=== PATIENT | female | born 1960 | race Caucasian/White ===

== ENCOUNTER → 2017-04-02 | Outpatient (CLI) | payer BC ==
--- NOTE | 2017-04-04 09:08 | Diagnostic Imaging Report ---
EXAMINATION: Bilateral screening mammogram 2D views with tomosynthesis. The current study was also evaluated with a Computer Aided Detection (CAD) system. INDICATION: Screening. PERSONAL HISTORY: No current complaints stated on the questionnaire. COMPARISON: 07/27/2015. FINDINGS: The breasts are composed of heterogeneously dense parenchyma which may decrease mammographic sensitivity. There are asymmetries with questionable architectural distortion located at mid depth of the left breast seen in the CC projection that appears to persist on the tomographic views. There is no correlating abnormality on the MLO view. These are located at mid depth in the lateral and central aspect of the left CC projection. The right breast demonstrates no change from the prior exams. IMPRESSION: Multiple asymmetries with question of architectural distortion in the central and lateral aspect of the left CC projection seen. Focal compression view evaluation and ultrasound are recommended. ACR BI-RADS Category 0: Incomplete. (Needs additional imaging evaluation). Result letter will be mailed to the patient. Note: At least 10% of breast cancer is not imaged by mammography. Dictated by: Dictated on workstation # [id number]
== END ==
LOC: RAD 11:06
PROVIDERS: ATTEND Nurse Practitioner
DX: Z12.31 Encounter for screening mammogram for malignant neoplasm of breast (principal)
CPT/HCPCS: 77067

== ENCOUNTER → 2021-09-07 | Outpatient (CLI) | payer SELFPAY ==
--- NOTE | 2021-09-08 09:21 | Diagnostic Imaging Report ---
Digital mammogram, bilateral screening This study was compared to the prior exams of 04/02/2017. At this time, there are no current complaints. The current study was also evaluated with a Computer Aided Detection (CAD) system. FINDINGS: The fibroglandular tissue in both breasts is heterogeneously dense. This does limit the sensitivity of this exam. Overall, there does not appear to have been any significant change when compared to the prior study. No primary or secondary sign of malignancy is noted. IMPRESSION: 1. There is no radiographic evidence for malignancy. 2. The patient should have her annual bilateral screening mammogram on schedule in August 2022. ACR category 1 ACR BI-RADS Category 1: Negative. Result letter will be mailed to the patient. Note: At least 10% of breast cancer is not imaged by mammography. Dictated by: Dictated on workstation # [id number]
== END ==
LOC: RAD 15:45
PROVIDERS: ATTEND Nurse Practitioner
DX: Z12.31 Encounter for screening mammogram for malignant neoplasm of breast (principal)
CPT/HCPCS: 77063; 77067

== ENCOUNTER 2023-06-30 23:06 | Inpatient (IN) | payer SELFPAY ==
[~2023-06-30] VITALS: Ht 160 cm; Wt 60.8 kg
--- NOTE | 2023-06-30 23:32 | ED Chest Pain ---
General Stated Complaint: HURTS TO BREATH Source: patient Exam Limitations: no limitations History of Present Illness Date Seen by Provider: Jun 30, 2023 Time Seen by Provider: 23:16 Initial Comments 63-year-old female presents emergency department today for tightness in her chest. The tightness started yesterday and has been persistent since that time. She did have a mild URI type illness up until a few days ago with a significant cough. She was seen in the walk-in clinic at the outset of her symptoms and diagnosed with "walking pneumonia" and started on antibiotics that she has finished at this time. She denies any fevers or chills. Pain is a tightness in her mid chest with radiation to her left arm and neck. Her cough has seemingly subsided at this time. The pain was significant right before she got here but states its nearly subsided at the time of evaluation. No cardiac history. She does have a mother that she visited recently that has verified COVID-19. All other systems reviewed and negative except documented per HPI. Voice recognition software was used to help create this chart Allergies and Home Medications Allergies Coded Allergies: No Known Drug Allergies (Unverified , 06/30/23) Patient Home Medication List Home Medication List Reviewed: Yes Review of Systems Review of Systems Constitutional: see HPI Past Rqhcsev-Lrasub-Aleyfd Hx Patient Social History Tobacco Use?: No Use of E-Cig and/or Vaping dev: No Substance use?: No Alcohol Use?: No Physical Exam Vital Signs Vital Signs - First Documented 06/30/23 23:17 Temp 36.1 Pulse 76 Resp 18 B/P (MAP) 125/75 (92) Pulse Ox 96 O2 Delivery Room Air Capillary Refill : Height, Weight, BMI Height: '" Weight: lbs. oz. kg; BMI Method: General Appearance: No Apparent Distress, WD/WN HEENT: Normal ENT Inspection, Pharynx Normal Neck: Non Tender, Supple Respiratory: Chest Non Tender, Lungs Clear, Normal Breath Sounds, No Accessory Muscle Use, No Respiratory Distress Cardiovascular: Regular Rate, Rhythm, No Edema, No Murmur, Normal Peripheral Pulses Gastrointestinal: Normal Bowel Sounds, No Organomegaly, Non Tender, Soft Extremity: Normal Capillary Refill, Normal Inspection, Normal Range of Motion, Non Tender, No Calf Tenderness, No Pedal Edema Neurologic/Psychiatric: Alert, Oriented x3, Normal Mood/Affect Skin: Normal Color, Warm/Dry Critical Care Note Critical Care Total Time (minutes) 60 Progress/Results/Core Measures Results/Orders Lab Results Laboratory Tests Test 06/30/23 23:35 07/01/23 00:20 Range/Units White Blood Count 10.5 4.3-11.0 10^3/uL Red Blood Count 4.50 3.80-5.11 10^6/uL Hemoglobin 13.3 11.5-16.0 g/dL Hematocrit 40 35-52 % Mean Corpuscular Volume 89 80-99 fL Mean Corpuscular Hemoglobin 30 25-34 pg Mean Corpuscular Hemoglobin Concent 33 32-36 g/dL Red Cell Distribution Width 12.7 10.0-14.5 % Platelet Count 299 130-400 10^3/uL Mean Platelet Volume 9.0 9.0-12.2 fL Immature Granulocyte % (Auto) 1 % Neutrophils (%) (Auto) 78 H 42-75 % Lymphocytes (%) (Auto) 15 12-44 % Monocytes (%) (Auto) 6 0-12 % Eosinophils (%) (Auto) 0 0-10 % Basophils (%) (Auto) 0 0-10 % Neutrophils # (Auto) 8.3 H 1.8-7.8 10^3/uL Lymphocytes # (Auto) 1.5 1.0-4.0 10^3/uL Monocytes # (Auto) 0.6 0.0-1.0 10^3/uL Eosinophils # (Auto) 0.0 0.0-0.3 10^3/uL Basophils # (Auto) 0.0 0.0-0.1 10^3/uL Immature Granulocyte # (Auto) 0.1 0.0-0.1 10^3/uL Sodium Level 141 135-145 MMOL/L Potassium Level 3.7 3.6-5.0 MMOL/L Chloride Level 107 98-107 MMOL/L Carbon Dioxide Level 21 21-32 MMOL/L Anion Gap 13 5-14 MMOL/L Blood Urea Nitrogen 10 7-18 MG/DL Creatinine 0.73 0.60-1.30 MG/DL Estimat Glomerular Filtration Rate 92 BUN/Creatinine Ratio 14 Glucose Level 143 H 70-105 MG/DL Calcium Level 9.4 8.5-10.1 MG/DL Corrected Calcium 9.3 8.5-10.1 MG/DL Magnesium Level 2.2 1.6-2.4 MG/DL Total Bilirubin 0.3 0.1-1.0 MG/DL Aspartate Amino Transf (AST/SGOT) 22 5-34 U/L Alanine Aminotransferase (ALT/SGPT) 15 0-55 U/L Alkaline Phosphatase 72 40-136 U/L Troponin I 1.782 *H <0.028 NG/ML Total Protein 6.8 6.4-8.2 GM/DL Albumin 4.1 3.2-4.5 GM/DL SARS-CoV-2 RNA (RT-PCR) Detected H Not Detecte My Orders Orders - JESÚS MONROE DO Cbc And Automated Diff (06/30/23 23:) Magnesium (06/30/23:) Chest 1 View, Ap/Pa Only (06/30/23:) Ekg Tracing (06/30/23:) Comprehensive Metabolic Panel (06/30/23:) Ed Iv/Invasive Line Start (06/30/23:) Troponin I Kristy (06/30/23 23:) Ketorolac Injection (Ketorolac Injection (07/01/23 00:15) Aspirin Chewable Tablet (Aspirin Chewabl (07/01/23 00:15) Aspirin Chewable Tablet (Aspirin Chewabl (07/01/23 00:13) Covid 19 Inhouse Test (07/01/23 00:19) Ed Admission (Communication) (07/01/23 00:24) Clopidogrel Tablet (Clopidogrel Tablet) (07/01/23 00:30) Medications Given in ED Vital Signs/I&O 06/30/23 06/30/23 23:17 23:17 Temp 36.1 Pulse 76 Resp 18 B/P (MAP) 125/75 (92) Pulse Ox 96 O2 Delivery Room Air Room Air Comment Sinus rhythm with a rate of 72 bpm. Normal intervals. Normal axis. No ST or T wave abnormalities. No ectopy. No STEMI. Departure Communication (Admissions) Patient is hemodynamically stable. She had no pain at the time of my evaluation, it did increase during her emergency department stay once again. She was given some pain medication and again her pain subsided completely. She is given aspirin. Troponin comes back elevated to 1.7. Chest x-ray is negative for any acute cardiopulmonary abnormalities. Her EKG again is nonischemic and no STEMI. I spoke with Dr. Burgos who gives verbal orders and request admission to the ICU and patient to remain NPO. Spoke with Dr. Mora who accepts the patient in admission. 0020: Aubrey- admit to ICU, leave NPO 0025: Abby accepts admission. Impression Primary Impression: NSTEMI (non-ST elevated myocardial infarction) Disposition: ADMITTED INPATIENT Condition: Stable Departure-Patient Inst. Referrals: NO,LOCAL PHYSICIAN (PCP/Family) Primary Care Physician JESÚS MONROE DO Jun 30, 2023 23:32
[2023-06-30 23:43] LABS: BASOPHILS % (AUTO) 0 % (0-10); EOSINOPHILS % (AUTO) 0 % (0-10); HEMATOCRIT 40 % (35-52); HEMOGLOBIN 13.3 g/dL (11.5-16.0); LYMPHOCYTES # (AUTO) 1.5 10^3/uL (1.0-4.0); LYMPHOCYTES % (AUTO) 15 % (12-44); MEAN CORPUSCULAR HEMOGLOBIN 30 pg (25-34); MEAN CORPUSCULAR HGB CONC 33 g/dL (32-36); MEAN CORPUSCULAR VOLUME 89 fL (80-99); MONOCYTES # (AUTO) 0.6 10^3/uL (0.0-1.0); MONOCYTES % (AUTO) 6 % (0-12); NEUTROPHILS # (AUTO) 8.3 10^3/uL (1.8-7.8); NEUTROPHILS % (AUTO) 78 % (42-75); PLATELET COUNT 299 10^3/uL (130-400); WHITE BLOOD COUNT 10.5 10^3/uL (4.3-11.0)
[2023-06-30 23:54] LABS: ALBUMIN 4.1 GM/DL (3.2-4.5); POTASSIUM 3.7 MMOL/L (3.6-5.0)
[2023-06-30 23:55] LABS: CALCIUM 9.4 MG/DL (8.5-10.1)
[2023-06-30 23:56] LABS: TOTAL PROTEIN 6.8 GM/DL (6.4-8.2)
[2023-06-30 23:58] LABS: BILIRUBIN,TOTAL 0.3 MG/DL (0.1-1.0)
[2023-07-01] LABS: CREATININE SERUM 0.73 MG/DL (0.60-1.30)
[2023-07-01 00:03] LABS: MAGNESIUM 2.2 MG/DL (1.6-2.4)
[2023-07-01] MEDS ORDERED: ASPIRIN 81 MG CHEWABLE TABLET ONE ×2 (00:13→13:27)
[2023-07-01] MEDS ORDERED: ASPIRIN 81 MG CHEWABLE TABLET PO ONE (00:15)
[2023-07-01] MEDS ORDERED: KETOROLAC INJ 15 MG/ML VIAL IVP ONE (00:15)
[2023-07-01] MEDS ORDERED: CLOPIDOGREL 300 MG TABLET PO ONE ×2 (00:30→13:27)
[2023-07-01 00:59] VITALS: BP 118/70
[2023-07-01] MEDS ORDERED: NS IV 500 ML 500 ML IV PRN (01:30)
[2023-07-01] MEDS ORDERED: morphine INJ 4 MG/ML 1 ML (VIAL/SYRINGE) IV PRN (02:00)
[2023-07-01] MEDS: NS IV 1000 ML 1,000 ML IV SCH ×4 (03:14→23:09)
[2023-07-01] MEDS: ENOXAPARIN 60 MG/0.6 ML SYRINGE SC SCH ×2 (03:14→14:00)
[2023-07-01 05:26] LABS: BASOPHILS % (AUTO) 0 % (0-10); EOSINOPHILS % (AUTO) 0 % (0-10); HEMATOCRIT 38 % (35-52); HEMOGLOBIN 12.6 g/dL (11.5-16.0); LYMPHOCYTES % (AUTO) 22 % (12-44); MEAN CORPUSCULAR HEMOGLOBIN 29 pg (25-34); MEAN CORPUSCULAR HGB CONC 33 g/dL (32-36); MEAN CORPUSCULAR VOLUME 89 fL (80-99); MEAN PLATELET VOLUME 9.5 fL (9.0-12.2); MONOCYTES # (AUTO) 0.6 10^3/uL (0.0-1.0); MONOCYTES % (AUTO) 6 % (0-12); NEUTROPHILS # (AUTO) 6.4 10^3/uL (1.8-7.8); NEUTROPHILS % (AUTO) 71 % (42-75); PLATELET COUNT 263 10^3/uL (130-400)
[2023-07-01 05:56] LABS: CALCIUM 8.8 MG/DL (8.5-10.1); CREATININE SERUM 0.64 MG/DL (0.60-1.30); MAGNESIUM 2.1 MG/DL (1.6-2.4); PHOSPHORUS 2.9 MG/DL (2.3-4.7); POTASSIUM 3.8 MMOL/L (3.6-5.0)
[2023-07-01] MEDS: POTASSIUM CL 10MEQ/50ML IVPB 50 ML IV SCH ×3 (06:01→07:48)
[2023-07-01] MEDS: MAGNESIUM 1 GM/100 ML IVPB 100 ML IV SCH (06:02)
[2023-07-01] MEDS: POTASSIUM CHLORIDE 20 MEQ TABLET PO SCH (06:02)
[2023-07-01] MEDS ORDERED: FLU QUADRIvalent (6 months+) 60 mcg/0.5 ml 2023-2024 (FLUARIX) IM ONE (07:00)
--- NOTE | 2023-07-01 07:52 | Diagnostic Imaging Report ---
Indication: Chest pain. Time of Exam: 11:22 PM No prior studies are available for comparison. Heart size normal. There is minimal scarring or atelectasis left base. There are no infiltrates. There is no effusion or pneumothorax. Impression: Minimal left basilar scarring or atelectasis. The study is otherwise unremarkable. Dictated by: Dictated on workstation # [id number]
[2023-07-01] MEDS: ASPIRIN 81 MG CHEWABLE TABLET PO SCH (09:00)
[2023-07-01] MEDS: CLOPIDOGREL 75 MG TABLET PO SCH (09:00)
[2023-07-01 09:17] LABS: TRIGLYCERIDES 45 MG/DL (<150); VLDL CHOLESTEROL 9 MG/DL (5-40)
[2023-07-01 09:23] LABS: CHOLESTEROL 187 MG/DL (< 200); HDL CHOLESTEROL 52 MG/DL (40-60)
--- NOTE | 2023-07-01 11:09 | Consultation-Cardiology ---
HPI-Cardiology Cardiology Consultation: Date of Consultation 07/01/23 Time Seen by a Provider: 10:15 Date of Admission Attending Physician No,Local Physician Admitting Physician Admitting Physician: Mavis Mora MD Attending Physician: Mavis Mora MD Consulting Physician ELZA GANDHI MD, MA, FACP, FACC, [facility], [facility] Physician requesting consult: Dr Mora HPI: Chief Complaint: Reason for Card consult: Ac NSTEMI 63 yo woman with cough productive of whitish/yellowish sputum about a week ago. Went to Urgent Care. Diagnosed with "walking pneumonia." Placed on antibiotics. Cough resolved in a few days. None currently, but positive for Covid-19 at presentation to ER on 06/30/23 for eval of chest discomfort that began early that day: mid chest, moderate pressure, radiating to shoulders, not associated with other symptoms, relieved in ER with nitro and other treatments for NSTEMI, never experienced before, lasting nearly 12 hours, none currently. Denies shortness of breath. Denies palp or syncope or swelling. Review of Systems-Cardiology Review of Systems Constitutional: malaise; No weight loss, No weight gain Eyes: No vision change Ears/Nose/Throat: No ear discharge, No nasal drainage, No recent hearing loss Respiratory: As described under HPI Cardiovascular: As described under HPI Gastrointestinal: No diarrhea, No nausea, No vomiting Genitourinary: No dysuria, No hematuria, No urine frequency changes Musculoskeletal: No back pain, No joint pain Skin: No rash, No ulcerations Psychiatric/Neurological: No seizure, No focal weakness, No syncope Hematologic: No bleeding abnormalities LUJ-Oupnmu-Ilswpd Hx Patient Social History Smoking Status: Former Smoker Alcohol Use?: No Pt feels they are or have been: No Past Medical History PMH As described under Assessment. Family Medical History Family Medical History: Does not report fam h/o early CAD or SCD Allergies and Home Medications Allergies Coded Allergies: No Known Drug Allergies (Unverified , 06/30/23) Patient Home Medication List Home Medication List Reviewed: Yes Physical Exam-Cardiology Physical Exam Vital Signs/I&O 06/30/23 06/30/23 07/01/23 07/01/23 23:17 23:17 00:59 01:30 Temp 36.1 36.1 Pulse 76 70 Resp 18 16 B/P (MAP) 125/75 (92) 118/70 Pulse Ox 96 96 97 O2 Delivery Room Air Room Air Room Air Room Air 07/01/23 07/01/23 07/01/23 07/01/23 01:30 01:37 01:45 02:00 Temp 37.5 Pulse 64 65 61 60 Resp 13 14 14 B/P (MAP) 113/63 (80) 120/69 (86) 107/70 (82) Pulse Ox 98 97 99 O2 Delivery Room Air Room Air Room Air 07/01/23 07/01/23 07/01/23 07/01/23 02:15 03:00 04:00 04:00 Pulse 69 69 62 Resp 27 27 27 B/P (MAP) 123/73 (90) 115/68 (84) 119/70 (86) Pulse Ox 98 99 98 98 O2 Delivery Room Air Room Air Room Air Room Air 07/01/23 07/01/23 07/01/23 07/01/23 05:00 06:00 07:00 07:00 Pulse 66 62 72 71 Resp 27 25 27 B/P (MAP) 119/70 (86) 115/66 (82) 130/81 (88) Pulse Ox 99 100 96 O2 Delivery Room Air Room Air Room Air 07/01/23 07/01/23 07/01/23 07/01/23 07:40 08:00 08:00 09:00 Temp 36.1 Pulse 69 76 B/P (MAP) 126/87 (115) 114/62 (91) Pulse Ox 97 99 100 O2 Delivery Room Air Room Air Room Air 07/01/23 10:00 Pulse 70 B/P (MAP) 140/81 (105) Pulse Ox 97 O2 Delivery Room Air Capillary Refill : Less Than 3 Seconds Constitutional: AAO x 3, well-developed, well-nourished HEENT: EOMI, hearing is well preserved; No xanthelasmas are seen Neck: carotid pulses are 2 + bilaterally, with good upstrokes Respiratory: No accessory muscle use; chest expansion is symmetric, chest is bilaterally symmetric, other (good, bilat air entry) Cardiovascular: regular rate-rhythm, S1 and S2, systolic murmur (soft CHRISTIANO at card base) Gastrointestinal: No tender; soft; No guarding, No rebound; audible bowel sounds Extremities: No clubbing, No cyanosis, No significant edema Neurologic/Psychiatric: oriented x 3, other (moves all limbs) Skin: No rash on exposed areas, No ulcerations on exposed areas Data Review Labs Laboratory Tests 06/30/23 23:35: White Blood Count 10.5, Red Blood Count 4.50, Hemoglobin 13.3, Hematocrit 40, Mean Corpuscular Volume 89, Mean Corpuscular Hemoglobin 30, Mean Corpuscular Hemoglobin Concent 33, Red Cell Distribution Width 12.7, Platelet Count 299, Mean Platelet Volume 9.0, Immature Granulocyte % (Auto) 1, Neutrophils (%) (Auto) 78H, Lymphocytes (%) (Auto) 15, Monocytes (%) (Auto) 6, Eosinophils (%) (Auto) 0, Basophils (%) (Auto) 0, Neutrophils # (Auto) 8.3H, Lymphocytes # (Auto) 1.5, Monocytes # (Auto) 0.6, Eosinophils # (Auto) 0.0, Basophils # (Auto) 0.0, Immature Granulocyte # (Auto) 0.1, Sodium Level 141, Potassium Level 3.7, Chloride Level 107, Carbon Dioxide Level 21, Anion Gap 13, Blood Urea Nitrogen 10, Creatinine 0.73, Estimat Glomerular Filtration Rate 92, BUN/Creatinine Ratio 14, Glucose Level 143H, Calcium Level 9.4, Corrected Calcium 9.3, Magnesium Level 2.2, Total Bilirubin 0.3, Aspartate Amino Transf (AST/SGOT) 22, Alanine Aminotransferase (ALT/SGPT) 15, Alkaline Phosphatase 72, Troponin I 1.782*H, Total Protein 6.8, Albumin 4.1 07/01/23 00:20: SARS-CoV-2 RNA (RT-PCR) DetectedH 07/01/23 04:57: White Blood Count 9.0, Red Blood Count 4.29, Hemoglobin 12.6, Hematocrit 38, Mean Corpuscular Volume 89, Mean Corpuscular Hemoglobin 29, Mean Corpuscular Hemoglobin Concent 33, Red Cell Distribution Width 12.9, Platelet Count 263, Mean Platelet Volume 9.5, Immature Granulocyte % (Auto) 1, Neutrophils (%) (Auto) 71, Lymphocytes (%) (Auto) 22, Monocytes (%) (Auto) 6, Eosinophils (%) (Auto) 0, Basophils (%) (Auto) 0, Neutrophils # (Auto) 6.4, Lymphocytes # (Auto) 2.0, Monocytes # (Auto) 0.6, Eosinophils # (Auto) 0.0, Basophils # (Auto) 0.0, Immature Granulocyte # (Auto) 0.1, Sodium Level 140, Potassium Level 3.8, Chloride Level 110H, Carbon Dioxide Level 22, Anion Gap 8, Blood Urea Nitrogen 10, Creatinine 0.64, Estimat Glomerular Filtration Rate 99, BUN/Creatinine Ratio 16, Glucose Level 106H, Calcium Level 8.8, Magnesium Level 2.1, Troponin I 3.962*H, Phosphorus Level 2.9, Triglycerides Level 45, Cholesterol Level 187, LDL Cholesterol Direct 145H, VLDL Cholesterol 9, HDL Cholesterol 52 Laboratory Tests 06/30/23 23:35 07/01/23 04:57 A/P-Cardiology Assessment/Admission Diagnosis Ac NSTEMI COVID-19 Discussion and Recomendations * DAPT * BB * Statin * Cath recommended. Discussed rationale, procedure, risks, benefits, potential complications and alternatives in detail. She understands and provides informed consent * Also discussed with Dr Mora Clinical Quality Measures AMI/AHF: ASA po Prior to arrival: ELZA Jay MD FACP [facility] Jul 01, 2023 11:09
[2023-07-01] MEDS ORDERED: fentaNYL INJECTION 100 MCG/2 ML VIAL ONE (11:18)
[2023-07-01] MEDS ORDERED: LIDOCAINE 1% INJ 20 ML VIAL ONE (11:19)
[2023-07-01] MEDS ORDERED: MIDAZOLAM INJ 5 MG/5 ML VIAL ONE (11:19)
[2023-07-01] MEDS ORDERED: HEParin (CATH LAB) 2,000 ML IV ONE (11:19)
[2023-07-01] MEDS ORDERED: HEParin 1000 UNIT/ML (10ML VIAL) FOR BOLUS ONE (11:41)
[2023-07-01] MEDS ORDERED: EPTIFIBATIDE BOLUS 20 ML IV ONE (12:37)
[2023-07-01] MEDS ORDERED: NS IV 1000 ML 1,000 ML ONE (12:46)
--- NOTE | 2023-07-01 13:23 | Tele-ICU Progress Note ---
Subjective Date Seen by a Provider: Jul 01, 2023 Time Seen by a Provider: 13:22 Subjective/Events-last exam Tele-ICU Physician , consultation as per request of PCP Service provided via interactive audio and video telecommunications E-CARE system to a patient admitted to ICU bed in [facility]. Available chart/ vitals / labs / Images reviewed H&P is from ER notes Patient's information available about PMH, Shx, Fhx allergy reviewed inEMR. ROS as per chart and RN report 63 y/o F presented to ER with c/o chest paid found to have NSTEMI admitted to ICU for further mgmt. Cardiology consulted A/P NSTEMI Cont DAPT, BB, Statin Planning for cath. Cont to trend troponin Lines : periph , (Central Line Necessity Reviewed) Bentley: Nutrition: npo VTE Prophylaxis: kim 1`30 bid Stress Ulcer Prophylaxis: Plans in collaboration with bedside consultants and IM MDs. Discussed with RN to reach out if any questions or concerns A total of 10 minutes of critical care time was devoted to this patient today, required to treat and/or prevent further deterioration of critical care condition ( as above ) Sepsis Event Evaluation Height, Weight, BMI Height: '" Weight: lbs. oz. kg; 23.43 BMI Method: Exam Exam Patient acknowledged, consented, and participated in this virtual visit which was conducted using real time audio/video Vital Signs Date Time Temp Pulse Resp B/P (MAP) Pulse Ox O2 Delivery O2 Flow Rate FiO2 07/01/23 12:00 97 Room Air 07/01/23 12:00 36.6 07/01/23 11:00 73 129/76 (97) 99 Room Air 07/01/23 10:00 70 140/81 (105) 97 Room Air 07/01/23 09:00 76 114/62 (91) 100 Room Air 07/01/23 08:00 69 126/87 (115) 99 Room Air 07/01/23 08:00 36.1 07/01/23 07:40 97 Room Air 07/01/23 07:00 71 27 130/81 (88) 96 Room Air 07/01/23 07:00 72 07/01/23 06:00 62 25 115/66 (82) 100 Room Air 07/01/23 05:00 66 27 119/70 (86) 99 Room Air 07/01/23 04:00 62 27 119/70 (86) 98 Room Air 07/01/23 04:00 98 Room Air 07/01/23 03:00 69 27 115/68 (84) 99 Room Air 07/01/23 02:15 69 27 123/73 (90) 98 Room Air 07/01/23 02:00 60 14 107/70 (82) 99 Room Air 07/01/23 01:45 61 14 120/69 (86) 97 Room Air 07/01/23 01:37 65 07/01/23 01:30 37.5 64 13 113/63 (80) 98 Room Air 07/01/23 01:30 97 Room Air 07/01/23 00:59 36.1 70 16 118/70 96 Room Air 06/30/23 23:17 36.1 76 18 125/75 (92) 96 Room Air 06/30/23 23:17 Room Air I & O 07/01/23 06:59 Intake Total 0 ml Output Total 0 ml Balance 0 ml Height & Weight Height: '" Weight: lbs. oz. kg; 23.43 BMI Method: General Appearance: No Apparent Distress, WD/WN HEENT: Normal ENT Inspection, Pharynx Normal Neck: Non Tender, Supple Respiratory: Chest Non Tender, Lungs Clear, Normal Breath Sounds, No Accessory Muscle Use, No Respiratory Distress Cardiovascular: Regular Rate, Rhythm, No Edema, No Murmur, Normal Peripheral Pulses Capillary Refill: Less Than 3 Seconds Extremity: Normal Capillary Refill, Normal Inspection, Normal Range of Motion, Non Tender, No Calf Tenderness, No Pedal Edema Neurologic/Psychiatric: Alert, Oriented x3, Normal Mood/Affect Skin: Normal Color, Warm/Dry Results Lab Laboratory Tests 06/30/23 23:35 07/01/23 04:57 Assessment/Plan Assessment/Plan . NITISH LEGGETT MD Jul 01, 2023 13:23
--- NOTE | 2023-07-01 14:03 | Cardiac Cath Report ---
CARDIAC CATHETERIZATION DATE OF PROCEDURE: 07-01-23 INDICATION: Ac NSTEMI HISTORY: The patient is a 63 year old female with acute NSTEMI PROCEDURES PERFORMED: 1. Cor angio; 2. PCI to LAD; 3. LHC and LV angio; 4. Aortic arch angio PROCEDURE DESCRIPTION: After informed consent and in the fasting state, left heart catheterization was performed through the R femoral artery utilizing a 6 Divehi system by percutaneous approach. JR4 for RCA, JL4 for LAD. Then PCI to LAD performed. See below. Then 6F pigtail for LHC and LV angio. Then pigtail pulled back and aortic arch angio performed to delineate and evaluate patient's right-sided aortic arch. All catheters were exchanged over a guidewire. HEMODYNAMICS: LVEDP after cor angio and cor intervention was 33 mmHg. No significant pressure gradient on pullback across the aortic valve CORONARY ANGIOGRAPHY: Left main coronary artery: Ok Left anterior descending coronary artery: Heavily calcified, particularly in its mid portion. Long, up to 99% stenosis in the prox and mid LAD stented successfully with Skypoint 2.25 x 38 mm stent. D1 with 50-60% prox stenosis Left circumflex coronary artery: Nondominant, mild plaques Right coronary artery: Dominant, mild plaques PERCUTANEOUS CORONARY INTERVENTION: Guide: JL3.5 with SH Wire: BMW Balloon: 2.0 x 15 for distal part of the lesion; 2.5 x 30 for the remainder of the lesion Stent: Skypoint 2.25 x 38 for the entire lesion, deployed at 12 manny (2.42 mm pilar), small mid portion of the stent post-dilated with 2.5 x 6 mm noncompliant to acheive full stent expansion at that site Pre-PCI: up to 99% stenosis and DERICK 2 distal flow Post-PCI: 0% residual and DERICK 3 distal flow Dominance: RCA LV ANGIO WATKINS projection only: LVEF 50-55% w/o RWMA AORTIC ARCH ANGIO R-sided arch, neck arteries intact to the extent visualized, no aneurysm or dissection seen IMPRESSION: 1. Left main coronary artery: Ok. Left anterior descending coronary artery: Heavily calcified, particularly in its mid portion. Long, up to 99% stenosis in the prox and mid LAD stented successfully with Skypoint 2.25 x 38 mm stent. D1 with 50-60% prox stenosis. Left circumflex coronary artery: Nondominant, mild plaques. Right coronary artery: Dominant, mild plaques 2. LVEDP 33 mmHg 3. LVEF 50-55% 4. R-sided arch ELZA GANDHI MD [facility] Jul 01, 2023 14:03
[2023-07-01] MEDS ORDERED: PATIENT MAY USE OWN MEDS, ALL PO SCH (14:15)
--- NOTE | 2023-07-01 14:35 | History & Physical-Hospitalist ---
History of Present Illness HPI/Chief Complaint Ana Luisa Stock is a 63 year old female with PMH HTN who presented with chest pain. She says she started having a heaviness over her chest on . She says it was persistent and then yesterday worsened with radiation to her back and arms. She denies shortness of breath. She denies diaphoresis. She denies nausea and vomiting. She was sick about 10 days ago with "walking pneumonia". She received a course of Doxycycline and a course of steroids. She was reportedly exposed to her mother recently who was diagnosed with COVID. Source: patient Exam Limitations: no limitations Date Seen 07/01/23 Time Seen by a Provider: 10:00 Attending Physician No,Local Physician PCP Admitting Physician: Mavis Mora MD Attending Physician: Mavis Mora MD Referring Physician Date of Admission Jul 01, 2023 at 00:54 Home Medications & Allergies Home Medications Reviewed patient Home Medication Reconciliation performed by pharmacy medication reconciliations diazo technician and/or nursing. Patients Allergies have been reviewed. Allergies Allergies Coded Allergies No Known Drug Allergies (Nbwtepsvle44/9/23) Past Pdsraha-Onywqz-Masjjo Hx Patient Social History Tobacco Use?: No Smoking Status: Former Smoker Smokeless Tobacco Frequency: Never a User Use of E-Cig and/or Vaping dev: No Substance use?: No Alcohol Use?: No Pt feels they are or have been: No Current Status Advance Directives: No Advance Directive Location: Home Communicates: Verbally Primary Language: Namibian Preferred Spoken Language: Namibian Is interpretation needed?: No Sensory deficits: Vision impairment Implanted or Applied Medical D: None Family Medical History No Pertinent Family Hx Review of Systems Constitutional: no symptoms reported Respiratory: no symptoms reported Cardiovascular: chest pain Gastrointestinal: no symptoms reported Physical Exam Physical Exam Vital Signs Vital Signs - First Documented 06/30/23 23:17 Temp 36.1 Pulse 76 Resp 18 B/P (MAP) 125/75 (92) Pulse Ox 96 O2 Delivery Room Air Capillary Refill : NONE Height, Weight, BMI Height: '" Weight: lbs. oz. kg; 23.43 BMI Method: General Appearance: No Apparent Distress, WD/WN HEENT: PERRL/EOMI, Pharynx Normal Neck: Normal Inspection, Supple Respiratory: Lungs Clear, Normal Breath Sounds, No Respiratory Distress Cardiovascular: Regular Rate, Rhythm, No Edema, No Murmur Gastrointestinal: Normal Bowel Sounds, Non Tender, Soft Extremity: Normal Inspection, No Pedal Edema Neurologic/Psychiatric: Alert, Normal Mood/Affect Skin: Normal Color, Warm/Dry Results Results/Procedures Labs Laboratory Tests 06/30/23 23:35 07/01/23 04:57 Patient resulted labs reviewed. Imaging: Reviewed Imaging Report Assessment/Plan Admission Diagnosis NSTEMI Admission Status: Inpatient Order (span 2 midnights) Reason for Inpatient Admission: Cardiology evaluation Assessment and Plan NSTEMI HTN HLD Troponin significantly elevated Cardiology consulted Planning for left heart cath today ASA Plavix Lovenox Lipitor Metoprolol COVID Asymptomatic, monitor Diagnosis/Problems Diagnosis/Problems (1) NSTEMI (non-ST elevated myocardial infarction) Status: Acute (2) HTN (hypertension) Status: Chronic (3) Dyslipidemia Status: Acute (4) COVID Status: Acute Clinical Quality Measures AMI/AHF: ASA po Prior to arrival: MAVIS Patel MD Jul 01, 2023 14:35
[2023-07-01] MEDS ORDERED: ATROPINE 1 MG/10 ML EMERGENCY SYRINGE ONE (15:55)
[2023-07-01] MEDS: fentaNYL INJECTION 100 MCG/2 ML VIAL IVP PRN ×2 (17:02→18:18)
[2023-07-01] MEDS: ONDANSETRON INJECTION 4 MG/2 ML (SDV) IVP PRN ×2 (17:02→23:08)
[2023-07-02] MEDS: ENOXAPARIN 60 MG/0.6 ML SYRINGE SC SCH ×3 (02:46→13:08)
[2023-07-02] MEDS: NS IV 1000 ML 1,000 ML IV SCH ×2 (04:25→09:34)
[2023-07-02 04:53] LABS: BASOPHILS % (AUTO) 0 % (0-10); EOSINOPHILS % (AUTO) 0 % (0-10); HEMATOCRIT 34 % (35-52); HEMOGLOBIN 10.9 g/dL (11.5-16.0); LYMPHOCYTES % (AUTO) 10 % (12-44); MEAN CORPUSCULAR HEMOGLOBIN 29 pg (25-34); MEAN CORPUSCULAR HGB CONC 32 g/dL (32-36); MEAN CORPUSCULAR VOLUME 91 fL (80-99); MEAN PLATELET VOLUME 9.6 fL (9.0-12.2); MONOCYTES # (AUTO) 0.6 10^3/uL (0.0-1.0); MONOCYTES % (AUTO) 7 % (0-12); NEUTROPHILS # (AUTO) 7.5 10^3/uL (1.8-7.8); NEUTROPHILS % (AUTO) 82 % (42-75); PLATELET COUNT 248 10^3/uL (130-400); WHITE BLOOD COUNT 9.2 10^3/uL (4.3-11.0)
[2023-07-02 05:13] LABS: CREATININE SERUM 0.62 MG/DL (0.60-1.30); MAGNESIUM 1.9 MG/DL (1.6-2.4); PHOSPHORUS 2.8 MG/DL (2.3-4.7); POTASSIUM 4.1 MMOL/L (3.6-5.0)
[2023-07-02] MEDS: MAGNESIUM 1 GM/100 ML IVPB 100 ML IV SCH ×3 (06:02→07:35)
[2023-07-02] MEDS: POTASSIUM CHLORIDE 20 MEQ TABLET PO SCH (06:03)
[2023-07-02] MEDS: POTASSIUM CL 10MEQ/50ML IVPB 50 ML IV SCH (06:03)
[2023-07-02] MEDS: ONDANSETRON INJECTION 4 MG/2 ML (SDV) IVP PRN (07:41)
[2023-07-02] MEDS ORDERED: PROMETHAZINE INJ 25 MG/ML VIAL IVP PRN (08:00)
--- NOTE | 2023-07-02 08:10 | Progress Note - Cardiology ---
Cardiology SOAP Progress Note Subjective: Sitting up in bed States she feels very nauseated since last evening No c/o CP, SOB or palpitations No c/o right groin discomfort Objective: I&O/Vital Signs 07/02/23 23:59 Intake Total 240 ml Balance 240 ml Side: right Groin site without hematoma: Yes Condition: DP/PT pulses palpable Bruising: mild bruising Constitutional: AAO x 3, well-developed, well-nourished Respiratory: No accessory muscle use; chest expansion is symmetric, chest is bilaterally symmetric, other (good, bilat air entry) Cardiovascular: regular rate-rhythm, S1 and S2, systolic murmur (soft CHRISTIANO at card base) Gastrointestional: No tender; soft; No guarding, No rebound; audible bowel sounds Extremities: No clubbing, No cyanosis, No significant edema Neurologic/Psychiatric: oriented x 3, other (moves all limbs) Skin: No rash on exposed areas, No ulcerations on exposed areas Results/Procedures: Labs Microbiology 07/01/23 MRSA Screen - Final, Complete MRSA not isolated A/P: Assessment: Ac NSTEMI - CAD - Cardiac cath of 07-01-23: Left main coronary artery: Ok. Left anterior descending coronary artery: Heavily calcified, particularly in its mid portion. Long, up to 99% stenosis in the prox and mid LAD stented successfully with Skypoint 2.25 x 38 mm stent. D1 with 50-60% prox stenosis. Left circumflex coronary artery: Nondominant, mild plaques. Right coronary artery: Dominant, mild plaques 2. LVEDP 33 mmHg 3. LVEF 50-55% 4. R-sided arch COVID-19 (+) Nausea - management per medical services Plan: * S/P cardiac cath with successful coronary intervention on 07-01-23 * Continue DAPT, statin * Somewhat low BP, 90's sytolic (albeit asymptomtic) - unable to tolerate long- acting BB * Nausea - management per medical services - start PPI (first dose IV, then change to oral) * Management of COVID per medical services Clinical Quality Measures AMI/AHF: ASA po Prior to arrival: MAN Naidu Jul 02, 2023 08:10
[2023-07-02] MEDS ORDERED: ATOR40TA PO (08:13)
[2023-07-02] MEDS ORDERED: CLOP75TA28 PO (08:13)
[2023-07-02] MEDS ORDERED: ASPI81TA64 PO (08:13)
[2023-07-02] MEDS ORDERED: MTP25TSR PO (08:13)
[2023-07-02] MEDS ORDERED: SCOPOLAMINE 1.5 MG PATCH TD NR (08:30)
[2023-07-02] MEDS ORDERED: PANTOPRAZOLE INJECTION 40 MG VIAL IV NR (08:30)
[2023-07-02] MEDS ORDERED: meTOprolol TARTRATE (IR) 25 MG TABLET PO SCH (09:00)
[2023-07-02] MEDS ORDERED: PROCHLORPERAZINE INJ 10 MG/2ML VIAL IV PRN (10:00)
--- NOTE | 2023-07-02 10:03 | Progress Note - Hospitalist ---
Subjective HPI/CC On Admission Date Seen by Provider: Jul 02, 2023 Ana Luisa Stock is a 63 year old female with PMH HTN who presented with chest pain. She says she started having a heaviness over her chest on . She says it was persistent and then yesterday worsened with radiation to her back and arms. She denies shortness of breath. She denies diaphoresis. She denies nausea and vomiting. She was sick about 10 days ago with "walking pneumonia". She received a course of Doxycycline and a course of steroids. She was reportedly exposed to her mother recently who was diagnosed with COVID. Subjective/Events-last exam Pt reports doing ok except having nausea. Was unable to take her lipitor last night. Zofran not helping. Had complained of dizziness to RN but to me did not unless asked specifically about that and she thinks it's just from lying in bed. Objective Exam Vital Signs Vital Signs Date Time Temp Pulse Resp B/P (MAP) Pulse Ox O2 Delivery O2 Flow Rate FiO2 07/02/23 09:00 59 11 112/67 (82) 99 Room Air 07/02/23 07:54 36.8 Capillary Refill : Less Than 3 Seconds General Appearance: No Apparent Distress, WD/WN Respiratory: Lungs Clear Cardiovascular: Regular Rate, Rhythm, No Murmur Gastrointestinal: Normal Bowel Sounds, Soft Neurologic/Psychiatric: Alert, Oriented x3 Results/Procedures Lab Laboratory Tests 07/02/23 04:28 Patient resulted labs reviewed. Imaging: Reviewed Imaging Report Assessment/Plan Assessment and Plan Assess & Plan/Chief Complaint NSTEMI HTN HLD s/p cath yesterday- stent to LAD Cardiology consulted ASA Plavix Lovenox Lipitor Metoprolol EF 50-55% noted during cath COVID Nausea Asymptomatic, monitor Zofran prn Scopolamine patch added Compazine prn Clinical Quality Measures AMI/AHF: ASA po Prior to arrival: No SHAGGY CARY MD Jul 02, 2023 10:03
[2023-07-02] MEDS: ASPIRIN 81 MG CHEWABLE TABLET PO SCH (10:07)
[2023-07-02] MEDS: CLOPIDOGREL 75 MG TABLET PO SCH (10:08)
--- NOTE | 2023-07-02 13:06 | Tele-ICU Progress Note ---
Subjective Date Seen by a Provider: Jul 02, 2023 Time Seen by a Provider: 13:06 Subjective/Events-last exam Tele-ICU Physician , Progress Note Service provided via interactive audio and video telecommunications E-CARE sys tem to a patient admitted to ICU bed in [facility]. Patient is seen today due to persistent need of ICU care Available chart/ vitals / labs / Images reviewed Video assessment done using teleICU camera, rest of exam as per RN Discussed with RN 07/02:No major event overnight. Only complaint includes nausea. Hospital course 63 y/o F presented to ER with c/o chest pain admitted for NSTEMI s/p cath (07/01) with stent to LAD. Diagnostic tests Cardiac cath of 07-01-23: Left main coronary artery: Ok. Left anterior descending coronary artery: Heavily calcified, particularly in its mid portion. Long, up to 99% stenosis in the prox and mid LAD stented successfully with Sk ypoint 2.25 x 38 mm stent. D1 with 50-60% prox stenosis. Left circumflex coronary artery: Nondominant, mild plaques. Right coronary artery: Dominant, mild plaques A/P NSTEMI s/p Cath with stent to LAD -Cardiology following. -Rec continuing ASA, Plavix -Cont lovenox -Cont metoprolol Chronic Nausea: Notes no improvement with Zofran. Will start scopolamine patch and compazine prn Lines : periph , (Central Line Necessity Reviewed) Bentley: Nutrition: cardiac diet VTE Prophylaxis: kim 1`30 bid Stress Ulcer Prophylaxis: n/a Plans in collaboration with bedside consultants and IM MDs. Discussed with RN to reach out if any questions or concerns A total of 10 minutes of critical care time was devoted to this patient today, required to treat and/or prevent further deterioration of critical care condition (as above ) I am remotely monitoring this patient from another state. I am unable to do the bedside exam, and history/physical and pertinent information is taken from other notes in the computer and bedside staff Sepsis Event Evaluation Height, Weight, BMI Height: '" Weight: lbs. oz. kg; 23.75 BMI Method: Exam Exam Patient acknowledged, consented, and participated in this virtual visit which was conducted using real time audio/video Vital Signs Date Time Temp Pulse Resp B/P (MAP) Pulse Ox O2 Delivery O2 Flow Rate FiO2 07/02/23 12:00 55 14 102/64 (77) 99 Room Air 07/02/23 11:26 36.6 07/02/23 11:00 59 8 106/62 (77) 99 Room Air 07/02/23 10:00 62 24 114/62 (79) 99 Room Air 07/02/23 09:00 59 11 112/67 (82) 99 Room Air 07/02/23 08:00 57 12 98/51 (67) 99 Room Air 07/02/23 08:00 100 Room Air 07/02/23 07:54 36.8 07/02/23 07:00 61 17 110/59 (76) 99 Room Air 07/02/23 07:00 65 07/02/23 06:00 60 13 103/59 (74) 99 Room Air 07/02/23 05:00 57 12 99/56 (70) 98 Room Air 07/02/23 04:00 97 Room Air 07/02/23 04:00 62 13 90/44 (64) 98 Room Air 07/02/23 03:00 57 11 111/57 (86) 98 Room Air 07/02/23 02:38 67 114/67 (85) 100 Room Air 07/02/23 02:00 60 7 90/53 (68) 99 Room Air 07/02/23 01:00 62 11 92/58 (69) 98 Room Air 07/02/23 01:00 62 07/02/23 00:00 61 11 91/47 (62) 98 Room Air 07/01/23 23:59 97 Room Air 07/01/23 23:10 65 11 103/59 (77) 98 Room Air 07/01/23 22:00 60 12 100/60 (73) 97 Room Air 07/01/23 21:00 58 9 103/60 (75) 97 Room Air 07/01/23 20:00 98 Room Air 07/01/23 20:00 68 9 110/67 (83) 99 Room Air 07/01/23 19:35 36.6 07/01/23 19:00 80 07/01/23 19:00 74 30 103/89 (95) 99 Room Air 07/01/23 18:00 66 18 118/70 (82) 100 Room Air 07/01/23 17:00 64 13 90/75 (81) 98 Room Air 07/01/23 16:00 36.7 07/01/23 16:00 97 Room Air 07/01/23 16:00 79 23 109/77 (88) 98 Room Air 07/01/23 15:00 63 15 122/78 (100) 100 Room Air 07/01/23 14:05 66 133/73 (93) 99 Room Air I & O 07/02/23 06:59 Intake Total 1450 ml Output Total 700 ml Balance 750 ml Height & Weight Height: '" Weight: lbs. oz. kg; 23.75 BMI Method: General Appearance: No Apparent Distress, WD/WN HEENT: Normal ENT Inspection, Pharynx Normal Neck: Non Tender, Supple Respiratory: Lungs Clear Cardiovascular: Regular Rate, Rhythm, No Murmur Capillary Refill: Less Than 3 Seconds Extremity: Normal Capillary Refill, Normal Inspection, Normal Range of Motion, Non Tender, No Calf Tenderness, No Pedal Edema Neurologic/Psychiatric: Alert, Oriented x3 Skin: Normal Color, Warm/Dry Results Lab Laboratory Tests 06/30/23 23:35 07/01/23 04:57 07/02/23 04:28 Assessment/Plan Assessment/Plan . NITISH LEGGETT MD Jul 02, 2023 13:06
[2023-07-02] MEDS ORDERED: ENOXAPARIN 40 MG/0.4 ML SYRINGE SQ SCH ×2 (13:15→14:00)
--- NOTE | 2023-07-02 13:33 | Progress Note - Cardiology ---
Cardiology SOAP Progress Note Subjective: N/V this am, now resolved. Has been able to keep all her meds down No cp or palp or syncope or shortness of breath No groin or leg discomfort/discoloration Denies any focal weakness Insists on going home Objective: I&O/Vital Signs 07/02/23 07/02/23 07/02/23 07/02/23 02:00 02:38 03:00 04:00 Pulse 60 67 57 62 Resp 7 11 13 B/P (MAP) 90/53 (68) 114/67 (85) 111/57 (86) 90/44 (64) Pulse Ox 99 100 98 98 O2 Delivery Room Air Room Air Room Air Room Air 07/02/23 07/02/23 07/02/23 07/02/23 04:00 05:00 06:00 07:00 Pulse 57 60 65 Resp 12 13 B/P (MAP) 99/56 (70) 103/59 (74) Pulse Ox 97 98 99 O2 Delivery Room Air Room Air Room Air 07/02/23 07/02/23 07/02/23 07/02/23 07:00 07:54 08:00 08:00 Temp 36.8 Pulse 61 57 Resp 17 12 B/P (MAP) 110/59 (76) 98/51 (67) Pulse Ox 99 100 99 O2 Delivery Room Air Room Air Room Air 07/02/23 07/02/23 07/02/23 07/02/23 09:00 10:00 11:00 11:26 Temp 36.6 Pulse 59 62 59 Resp 11 24 8 B/P (MAP) 112/67 (82) 114/62 (79) 106/62 (77) Pulse Ox 99 99 99 O2 Delivery Room Air Room Air Room Air 07/02/23 07/02/23 12:00 12:00 Pulse 55 Resp 14 B/P (MAP) 102/64 (77) Pulse Ox 100 99 O2 Delivery Room Air Room Air 07/01/23 23:59 Intake Total 1100 ml Output Total 700 ml Balance 400 ml Side: right Groin site without hematoma: Yes Condition: DP/PT pulses palpable Bruising: mild bruising Constitutional: AAO x 3, well-developed, well-nourished Respiratory: No accessory muscle use; chest expansion is symmetric, chest is bilaterally symmetric, other (good, bilat air entry) Cardiovascular: regular rate-rhythm, S1 and S2, systolic murmur (soft CHRISTIANO at card base) Gastrointestional: No tender; soft; No guarding, No rebound; audible bowel sounds Extremities: No clubbing, No cyanosis, No significant edema Neurologic/Psychiatric: oriented x 3, other (moves all limbs) Skin: No rash on exposed areas, No ulcerations on exposed areas Results/Procedures: Labs Laboratory Tests 07/02/23 04:28: White Blood Count 9.2, Red Blood Count 3.71L, Hemoglobin 10.9L, Hematocrit 34L, Mean Corpuscular Volume 91, Mean Corpuscular Hemoglobin 29, Mean Corpuscular Hemoglobin Concent 32, Red Cell Distribution Width 13.1, Platelet Count 248, Mean Platelet Volume 9.6, Immature Granulocyte % (Auto) 1, Neutrophils (%) (Au to) 82H, Lymphocytes (%) (Auto) 10L, Monocytes (%) (Auto) 7, Eosinophils (%) (Auto) 0, Basophils (%) (Auto) 0, Neutrophils # (Auto) 7.5, Lymphocytes # (Auto) 1.0, Monocytes # (Auto) 0.6, Eosinophils # (Auto) 0.0, Basophils # (Auto) 0.0, Immature Granulocyte # (Auto) 0.1, Sodium Level 138, Potassium Level 4.1, Chloride Level 110H, Carbon Dioxide Level 19L, Anion Gap 9, Blood Urea Nitrogen 8, Creatinine 0.62, Estimat Glomerular Filtration Rate 100, BUN/Creatinine Ratio 13, Glucose Level 121H, Calcium Level 8.0L, Phosphorus Level 2.8, Magnesium Level 1.9 Microbiology 07/01/23 MRSA Screen - Final, Complete MRSA not isolated A/P: Assessment: Ac NSTEMI - CAD - Cardiac cath of 07-01-23: Left main coronary artery: Ok. Left anterior descending coronary artery: Heavily calcified, particularly in its mid portion. Long, up to 99% stenosis in the prox and mid LAD stented successfully with Skypoint 2.25 x 38 mm stent. D1 with 50-60% prox stenosis. Left circumflex coronary artery: Nondominant, mild plaques. Right coronary artery: Dominant, mild plaques 2. LVEDP 33 mmHg 3. LVEF 50-55% 4. R-sided arch COVID-19 (+) Nausea - management per medical services Plan: * S/P cardiac cath with successful coronary intervention on 07-01-23 * Continue DAPT, statin * Dose of bb lowered because of relatively low bp * Nausea - management per medical services - start PPI (first dose IV, then change to oral) * Management of COVID per medical services * Advised to return to ER for any symptoms (recurrence or new) Clinical Quality Measures AMI/AHF: ASA po Prior to arrival: ELZA Jay MD FACP FAC CCDS Jul 02, 2023 13:33
[2023-07-02] MEDS ORDERED: AMLO-250 PO (14:20)
[2023-07-02] MEDS ORDERED: SPIR25TA5 PO (14:20)
--- NOTE | 2023-07-02 14:27 | Discharge Summary ---
Diagnosis/Chief Complaint Date of Admission Jul 01, 2023 at 00:54 Date of Discharge Discharge Date: Jul 02, 2023 Admission Diagnosis NSTEMI Primary Care No,Local Physician Discharge Diagnosis (1) NSTEMI (non-ST elevated myocardial infarction) Status: Acute (2) HTN (hypertension) Status: Chronic (3) Dyslipidemia Status: Acute (4) COVID Status: Acute Discharge Summary Discharge Physical Exam Allergies: Coded Allergies: No Known Drug Allergies (Unverified , 06/30/23) Vitals & I&Os Vital Signs Date Time Temp Pulse Resp B/P (MAP) Pulse Ox O2 Delivery O2 Flow Rate FiO2 07/02/23 13:00 57 07/02/23 12:00 14 102/64 (77) 99 Room Air 07/02/23 11:26 36.6 General Appearance: No Apparent Distress Hospital Course Pt was admitted to the hospital due to NSTEMI. Cardiology was consulted and she underwent heart cath with LAD Labs (last 24 hrs) Laboratory Tests 07/02/23 04:28: White Blood Count 9.2, Red Blood Count 3.71L, Hemoglobin 10.9L, Hematocrit 34L, Mean Corpuscular Volume 91, Mean Corpuscular Hemoglobin 29, Mean Corpuscular Hemoglobin Concent 32, Red Cell Distribution Width 13.1, Platelet Count 248, Mean Platelet Volume 9.6, Immature Granulocyte % (Auto) 1, Neutrophils (%) (Auto) 82H, Lymphocytes (%) (Auto) 10L, Monocytes (%) (Auto) 7, Eosinophils (%) (Auto) 0, Basophils (%) (Auto) 0, Neutrophils # (Auto) 7.5, Lymphocytes # (Auto) 1.0, Monocytes # (Auto) 0.6, Eosinophils # (Auto) 0.0, Basophils # (Auto) 0.0, Immature Granulocyte # (Auto) 0.1, Sodium Level 138, Potassium Level 4.1, Chloride Level 110H, Carbon Dioxide Level 19L, Anion Gap 9, Blood Urea Nitrogen 8, Creatinine 0.62, Estimat Glomerular Filtration Rate 100, BUN/Creatinine Ratio 13, Glucose Level 121H, Calcium Level 8.0L, Phosphorus Level 2.8, Magnesium Level 1.9 Microbiology 07/01/23 MRSA Screen - Final, Complete MRSA not isolated Patient resulted labs reviewed. Imaging: Reviewed Imaging Report Discharge Home Medications: Active Scripts Active Children's Aspirin (Aspirin) 81 Mg Tab.chew 81 Mg PO DAILY Metoprolol Succinate 25 Mg Tab.er.24h 25 Mg PO DAILY Lipitor (Atorvastatin Calcium) 40 Mg Tablet 40 Mg PO HS Clopidogrel (Clopidogrel Bisulfate) 75 Mg Tablet 75 Mg PO DAILY Instructions to patient/family Please see electronic discharge instructions given to patient. Clinical Quality Measures AMI/AHF: ASA po Prior to arrival: SHAGGY Easley MD Jul 02, 2023 14:27
--- NOTE | 2023-07-02 14:33 | Discharge Inst-Simple/Standard ---
Discharge Inst-Standard Patient Instructions/Follow Up Plan of Care/Instructions/FU: Please continue to take your medications as written. Please follow up with your primary care doctor to follow up this hospital stay. Activity as Tolerated: Yes Discharge Diet: Cardiac Diet Return to The Hospital For: Chest pain, shortness of breath, fever, weakness, if you feel you are getting worse. SHAGGY CARY MD Jul 02, 2023 14:33
[2023-07-03] MEDS ORDERED: PANTOPRAZOLE 40 MG TABLET PO SCH (09:00)
[2023-07-05] MEDS ORDERED: SCOPOLAMINE PATCH REMOVAL TP ONE (08:30)
== END 2023-07-02 15:00 | disposition home or self-care (01) | DRG 321 ==
LOC: EDUNIT# 23:06 → ER 23:09 → ICU 07-01 00:54
PROVIDERS: ADMIT Internal Medicine; ATTEND Internal Medicine
PROC: 027034Z Dilation of Coronary Artery, One Artery with Drug-eluting Intraluminal Device, Percutaneous Approach (ICD-10-PCS; principal; 2023-07-01)
PROC: 4A023N7 Measurement of Cardiac Sampling and Pressure, Left Heart, Percutaneous Approach (ICD-10-PCS; 2023-07-01)
PROC: B2111ZZ Fluoroscopy of Multiple Coronary Arteries using Low Osmolar Contrast (ICD-10-PCS; 2023-07-01)
PROC: B2151ZZ Fluoroscopy of Left Heart using Low Osmolar Contrast (ICD-10-PCS; 2023-07-01)
PROC: B3101ZZ Fluoroscopy of Thoracic Aorta using Low Osmolar Contrast (ICD-10-PCS; 2023-07-01)
DX: I21.4 Non-ST elevation (NSTEMI) myocardial infarction (principal); U07.1 COVID-19; I25.10 Atherosclerotic heart disease of native coronary artery without angina pectoris; I10 Essential (primary) hypertension; E78.5 Hyperlipidemia, unspecified; H54.7 Unspecified visual loss; Z87.891 Personal history of nicotine dependence; R11.0 Nausea
CPT/HCPCS: 36221; 36415; 71045; 80048; 80053; 80061; 83735; 84100; 84484; 85025; 85347; 87081; 87636; 93005; 93458